=== PATIENT | male | born 1955 | race African-American/Black ===

== ENCOUNTER 2017-05-30 15:01 | Inpatient (IN) | payer SELFPAY ==
[~2017-05-30] VITALS: Ht 175.3 cm; Wt 95.8 kg
[~2017-05-30 15:01] MED LIST: AMLO10TA80 PO; ATOR20TA65 PO; HYDR-4135 PO; LISI40TA4 PO; METO50TA5 PO
[2017-05-30] MEDS ORDERED: VANCOMYCIN 1 G PREMIX 200 ML IV SCH ×3 (15:45→22:15)
[2017-05-30] MEDS ORDERED: PIPERACILLIN SODIUM/TAZOBACTAM 4.5 G in DEXT 5% WATER 100 ML IV SCH (15:45)
[2017-05-30] MEDS ORDERED: SODIUM CHLORIDE 0.9% 1000ML BAG (SEPSIS BOLUS) IV ONE (15:45)
[2017-05-30 16:02] LABS: HEMATOCRIT. 37.5 % (42.0-52.0); HEMOGLOBIN. 12.7 g/dL (14.0-18.0); MEAN CORPUSCULAR HEMOGLOBIN 30.1 pg (28.0-32.0); MEAN CORPUSCULAR VOLUME 89.1 fL (80.0-94.0); MEAN PLATELET VOLUME 9.1 fl (7.4-10.4); PLATELET 205 x1000/uL (130-400); RED BLOOD CELL COUNT 4.21 mill/uL (4.7-6.1); RED CELL DISTRIBUTION WIDTH 15.2 % (11.6-14.6)
[2017-05-30 16:05] LABS: INR 1.2; PROTHROMBIN TIME 12.3 sec (9.4-11.6)
[2017-05-30 16:09] LABS: AMMONIA 55 uMol/L (<32)
[2017-05-30 16:16] LABS: CARBON DIOXIDE 21 mEq/L (21-32); CHLORIDE 103 mEq/L (98-107); TROPONIN I < 0.02 ng/mL (0.00-0.04)
[2017-05-30 16:50] LABS: PLATELET ESTIMATE NORMAL
[2017-05-30] MEDS ORDERED: ACETAMINOPHEN 500MG TABLET ONE (17:57)
[2017-05-30] MEDS ORDERED: LIDOCAINE HCL 2% JELLY 5ML ONE (18:14)
[2017-05-30 20:41] LABS: CLARITY URINE CLEAR (CLEAR); COLOR URINE YELLOW (YELLOW); GLUCOSE URINE TRACE (NEGATIVE); KETONES URINE NEGATIVE (NEGATIVE); LEUKOCYTE ESTERASE URINE TRACE (NEGATIVE); NITRITE URINE POSITIVE (NEGATIVE); OCCULT BLOOD URINE 3+ (NEGATIVE); PH URINE 5.5 (4.5-8.0); PROTEIN URINE TRACE (NEGATIVE); SPECIFIC GRAVITY URINE 1.012 (1.005-1.030); UROBILINOGEN URINE 0.2 E.U./dL (0.2-1.0)
[2017-05-30 21:12] LABS: *AMPHETAMINES SCREEN URINE NEGATIVE (NEGATIVE); *BARBITURATES SCREEN URINE NEGATIVE (NEGATIVE); *BENZODIAZEPINES SCREEN URINE NEGATIVE (NEGATIVE); *COCAINE SCREEN URINE NEGATIVE (NEGATIVE); CANNABINOID URINE SCREEN NEGATIVE (NEGATIVE); METHADONE URINE SCREEN NEGATIVE (NEGATIVE); OPIATES URINE SCREEN NEGATIVE (NEGATIVE); PHENCYCLIDINE URINE SCREEN NEGATIVE (NEGATIVE)
[2017-05-30] MEDS ORDERED: GUAIFENESIN 200MG/10ML SUGAR FREE UDC PO PRN (22:15)
[2017-05-30] MEDS ORDERED: ACETAMINOPHEN 650MG/20.3ML UDC GT PRN (22:15)
[2017-05-30] MEDS ORDERED: IPRATROPIUM/ALBUTEROL 0.5-3(2.5)MG/3ML NEB INH PRN (22:15)
[2017-05-30] MEDS ORDERED: NA PHOS,M-B/NA PHOS,DI-BA ENEMA 118ML PR PRN (22:15)
[2017-05-30] MEDS ORDERED: ACETAMINOPHEN 325MG TABLET PO PRN (22:15)
[2017-05-30] MEDS ORDERED: MAGNESIUM/ALUMINUM HYDROXIDE/SIMETHICONE 30ML UDC PO PRN (22:15)
[2017-05-30] MEDS ORDERED: ACETAMINOPHEN 650MG SUPP PR PRN (22:15)
[2017-05-30] MEDS ORDERED: HYDROCODONE/ACETAMINOPHEN 10/325MG TABLET PO PRN (22:15)
[2017-05-30] MEDS ORDERED: DOCUSATE SODIUM 100MG CAPSULE PO PRN (22:15)
[2017-05-30] MEDS ORDERED: DEXTROSE 50% WATER 50ML SYRINGE IV PRN (22:15)
[2017-05-30] MEDS ORDERED: ONDANSETRON HCL 4MG/2ML VIAL IV PRN (22:15)
[2017-05-31] VITALS (7 sets, daily range): BP systolic 20–170; BP diastolic 77–90
[2017-05-31] MEDS ORDERED: VANCOMYCIN 1500MG in DEXTROSE 5% WATER 250ML IV SCH (04:00)
[2017-05-31] MEDS: PIPERACILLIN/TAZ 3.375G PREMIX 50 ML IV SCH ×3 (04:05→21:46)
[2017-05-31] MEDS: SODIUM CHLORIDE 0.45% 1,000 ML IV SCH ×2 (04:05→11:22)
[2017-05-31] MEDS: BLOOD SUGAR DIAGNOSTIC STRIP TEST SCH ×4 (06:57→21:06)
[2017-05-31 07:11] LABS: HEMATOCRIT. 33.4 % (42.0-52.0); HEMOGLOBIN. 11.2 g/dL (14.0-18.0); MEAN CORPUSCULAR VOLUME 89.2 fL (80.0-94.0); MEAN PLATELET VOLUME 9.8 fl (7.4-10.4); PLATELET 176 x1000/uL (130-400); RED BLOOD CELL COUNT 3.75 mill/uL (4.7-6.1); RED CELL DISTRIBUTION WIDTH 15.5 % (11.6-14.6)
[2017-05-31] MEDS: INSULIN LISPRO 100 UNITS/ML SUBCUT SCH ×4 (08:07→21:27)
[2017-05-31 08:29] LABS: CARBON DIOXIDE 24 mEq/L (21-32); CHLORIDE 106 mEq/L (98-107); HDL CHOLESTEROL 26 mg/dL (40-59); LDL CHOLESTEROL 61 mg/dL (5-100)
[2017-05-31 10:54] LABS: PLATELET ESTIMATE NORMAL
[2017-05-31] MEDS ORDERED: POTASSIUM CHLORIDE 20MEQ TABLET SR PO SCH (12:30)
[2017-05-31] MEDS: CLONIDINE 0.1MG TABLET PO PRN (13:45)
[2017-05-31] MEDS ORDERED: VANCOMYCIN 1 G PREMIX 200 ML IV SCH (16:00)
[2017-05-31] MEDS: VANCOMYCIN 1 G PREMIX 200 ML IV SCH (17:46)
[2017-06-01] VITALS (7 sets, daily range): BP systolic 136–160; BP diastolic 80–101
[2017-06-01] MEDS: SODIUM CHLORIDE 0.45% 1,000 ML IV SCH ×2 (00:42→17:08)
[2017-06-01] MEDS: PIPERACILLIN/TAZ 3.375G PREMIX 50 ML IV SCH ×3 (05:15→21:48)
[2017-06-01] MEDS: VANCOMYCIN 1 G PREMIX 200 ML IV SCH ×3 (05:16→22:55)
[2017-06-01 06:43] LABS: BASOPHILS % 0.8 % (0.0-2.0); EOSINOPHILS % 1.7 % (0.0-5.0); HEMATOCRIT. 33.5 % (42.0-52.0); HEMOGLOBIN. 11.4 g/dL (14.0-18.0); LYMPHOCYTES % 8.2 % (20.0-50.0); MEAN CORPUSCULAR HEMOGLOBIN 30.1 pg (28.0-32.0); MEAN CORPUSCULAR VOLUME 88.6 fL (80.0-94.0); MEAN PLATELET VOLUME 9.8 fl (7.4-10.4); MONOCYTES % 4.5 % (2.0-8.0); NEUTROPHILS % 84.8 % (40.0-76.0); PLATELET 208 x1000/uL (130-400); RED BLOOD CELL COUNT 3.78 mill/uL (4.7-6.1); RED CELL DISTRIBUTION WIDTH 15.5 % (11.6-14.6)
[2017-06-01] MEDS: BLOOD SUGAR DIAGNOSTIC STRIP TEST SCH ×4 (07:27→21:17)
[2017-06-01] MEDS: INSULIN LISPRO 100 UNITS/ML SUBCUT SCH ×4 (07:50→21:47)
[2017-06-01 14:15] LABS: CARBON DIOXIDE 23 mEq/L (21-32); CHLORIDE 106 mEq/L (98-107)
[2017-06-01] MEDS: CLONIDINE 0.1MG TABLET PO PRN (16:59)
[2017-06-01] MEDS ORDERED: AMLODIPINE 10MG TABLET PO ONE (17:45)
[2017-06-01] MEDS: AMLODIPINE 10MG TABLET PO SCH (20:11)
[2017-06-01] MEDS: BENAZEPRIL 5MG TABLET PO SCH (20:12)
[2017-06-01] MEDS ORDERED: ATORVASTATIN CALCIUM 20MG TABLET PO SCH (21:00)
[2017-06-01] MEDS: ASPIRIN 81MG EC TABLET PO SCH (21:46)
[2017-06-01] MEDS ORDERED: ASPI-986 PO (22:55)
[2017-06-01] MEDS ORDERED: POTASSIUM CHLORIDE 20MEQ TABLET SR PO SCH (23:00)
[2017-06-02 05:02] VITALS: BP 151/94
[2017-06-02] MEDS: PIPERACILLIN/TAZ 3.375G PREMIX 50 ML IV SCH ×2 (05:21→13:17)
[2017-06-02] MEDS: VANCOMYCIN 1 G PREMIX 200 ML IV SCH ×2 (05:21→15:43)
[2017-06-02 06:34] LABS: BASOPHILS % 1.2 % (0.0-2.0); EOSINOPHILS % 2.4 % (0.0-5.0); HEMATOCRIT. 35.4 % (42.0-52.0); HEMOGLOBIN. 11.9 g/dL (14.0-18.0); LYMPHOCYTES % 14.6 % (20.0-50.0); MEAN CORPUSCULAR HEMOGLOBIN 30.1 pg (28.0-32.0); MEAN CORPUSCULAR VOLUME 89.5 fL (80.0-94.0); MEAN PLATELET VOLUME 9.3 fl (7.4-10.4); MONOCYTES % 6.5 % (2.0-8.0); NEUTROPHILS % 75.3 % (40.0-76.0); PLATELET 241 x1000/uL (130-400); RED BLOOD CELL COUNT 3.96 mill/uL (4.7-6.1); RED CELL DISTRIBUTION WIDTH 15.5 % (11.6-14.6)
[2017-06-02 06:47] LABS: CARBON DIOXIDE 27 mEq/L (21-32); CHLORIDE 103 mEq/L (98-107)
[2017-06-02 08:00] VITALS: BP 140/91
[2017-06-02] MEDS: INSULIN LISPRO 100 UNITS/ML SUBCUT SCH ×2 (09:21→13:41)
[2017-06-02] MEDS: BLOOD SUGAR DIAGNOSTIC STRIP TEST SCH ×2 (09:22→13:40)
[2017-06-02] MEDS: BENAZEPRIL 5MG TABLET PO SCH (09:23)
[2017-06-02] MEDS: ASPIRIN 81MG EC TABLET PO SCH (09:23)
[2017-06-02] MEDS: AMLODIPINE 10MG TABLET PO SCH (09:23)
[2017-06-02 12:00] VITALS: BP 145/95
[2017-06-02] MEDS ORDERED: AMOX250S70 PO (14:12)
[2017-06-02] MEDS ORDERED: POTASSIUM CHLORIDE 20MEQ TABLET SR PO NR (14:15)
[2017-06-02 16:01] VITALS: BP 131/88
[2017-06-02 17:34] VITALS: BP 131/88
== END 2017-06-02 18:35 | disposition home or self-care (01) | DRG 720 ==
LOC: ER 15:08 → ENRESERV 05-31 00:45 → 6WST 05-31 02:13
PROVIDERS: ADMIT Family Medicine; ATTEND Family Medicine
DX: A41.9 Sepsis, unspecified organism (principal); I63.9 Cerebral infarction, unspecified; I10 Essential (primary) hypertension; R47.01 Aphasia; E66.01 Morbid (severe) obesity due to excess calories; E78.5 Hyperlipidemia, unspecified; I25.10 Atherosclerotic heart disease of native coronary artery without angina pectoris; Z86.73 Personal history of transient ischemic attack (TIA), and cerebral infarction without residual deficits; Z72.0 Tobacco use
CPT/HCPCS: 36415; 70450; 70551; 71010; 80048; 80053; 80061; 80202; 80305; 81001; 82140; 82962; 83605; 83690; 83880; 84484; 85025; 85610; 87040; 87077; 87086; 87186; 93005; 93880; 97162; 97166; C1893; J1815; J2543; J3370; J7030; J7050; J7060

== ENCOUNTER 2019-09-04 21:50 | Inpatient (IN) | payer MEDICAID ==
[~2019-09-04] VITALS: Ht 175.3 cm; Wt 103.9 kg
[~2019-09-04 21:50] MED LIST changes: +AMOX250S70 PO; +ASPI-986 PO; +METO-539 PO; -METO50TA5 PO
[2019-09-04] MEDS ORDERED: SODIUM CHLORIDE 0.9% 500 ML IV ONE (22:35)
[2019-09-04 23:43] LABS: BASOPHILS % 1.5 % (0.0-2.0); EOSINOPHILS % 2.1 % (0.0-5.0); HEMATOCRIT. 36.1 % (42.0-52.0); HEMOGLOBIN. 12.9 g/dL (14.0-18.0); LYMPHOCYTES % 15.7 % (20.0-50.0); MEAN CORPUSCULAR HEMOGLOBIN 31.5 pg (28.0-32.0); MEAN CORPUSCULAR VOLUME 88.2 fL (80.0-94.0); MEAN PLATELET VOLUME 8.5 fl (7.4-10.4); MONOCYTES % 6.7 % (2.0-8.0); PLATELET 292 x1000/uL (130-400); RED BLOOD CELL COUNT 4.09 mill/uL (4.7-6.1); RED CELL DISTRIBUTION WIDTH 14.9 % (11.6-14.6)
[2019-09-05 00:09] LABS: CHLORIDE 99 mEq/L (98-107)
[2019-09-05] MEDS ORDERED: ASPIRIN 325MG EC TABLET PO ONE (00:45)
[2019-09-05] MEDS ORDERED: AMLODIPINE 10MG TABLET PO ONE (00:45)
[2019-09-05] MEDS ORDERED: METOPROLOL TARTRATE 50MG TABLET PO ONE (02:45)
[2019-09-05] MEDS ORDERED: IOHEXOL-350 100 ML BOTTLE ONE (03:52)
[2019-09-05] MEDS ORDERED: TRANEXAMIC ACID 1,000 MG/10 ML IV ONE (05:45)
[2019-09-05] MEDS ORDERED: CLONIDINE 0.1MG TABLET PO PRN (08:30)
[2019-09-05] MEDS ORDERED: DEXTROSE 50% WATER 50ML SYRINGE IV PRN (08:30)
[2019-09-05 09:16] VITALS: BP 187/100
[2019-09-05] MEDS ORDERED: LOSARTAN POTASSIUM 50 MG TABLET PO NR (09:30)
[2019-09-05] MEDS ORDERED: POTASSIUM CHLORIDE 20MEQ TABLET SR PO NR (09:30)
[2019-09-05] MEDS ORDERED: TAMS-11 PO (09:45)
[2019-09-05] MEDS ORDERED: CLOP75TA33 PO (09:45)
[2019-09-05] MEDS ORDERED: GLIP5TAB12 PO (09:45)
[2019-09-05] MEDS: BLOOD SUGAR DIAGNOSTIC STRIP TEST SCH ×4 (09:54→21:00)
[2019-09-05 10:00] VITALS: BP 187/100
[2019-09-05] MEDS: AMLODIPINE 5MG TABLET PO SCH ×2 (10:09→21:01)
[2019-09-05] MEDS: METOPROLOL TARTRATE 50MG TABLET PO SCH ×2 (10:09→21:01)
[2019-09-05 12:00] VITALS: BP 183/96
[2019-09-05 12:50] LABS: LDL CHOLESTEROL 72 mg/dL (5-100)
[2019-09-05 12:53] LABS: HDL CHOLESTEROL 28 mg/dL (40-59)
[2019-09-05] MEDS: INSULIN LISPRO 100 UNITS/ML SUBCUT SCH ×3 (12:58→21:00)
[2019-09-05] MEDS: CLONIDINE 0.2MG TABLET PO SCH ×2 (13:35→21:01)
[2019-09-05 15:27] LABS: CLARITY URINE CLEAR (CLEAR); COLOR URINE YELLOW (YELLOW); KETONES URINE NEGATIVE (NEGATIVE); LEUKOCYTE ESTERASE URINE NEGATIVE (NEGATIVE); NITRITE URINE NEGATIVE (NEGATIVE); OCCULT BLOOD URINE NEGATIVE (NEGATIVE); PROTEIN URINE 1+ (NEGATIVE); SPECIFIC GRAVITY URINE 1.026 (1.005-1.030)
[2019-09-05 16:00] VITALS: BP 185/100
[2019-09-05 17:46] LABS: *AMPHETAMINES SCREEN URINE NEGATIVE (NEGATIVE); *BARBITURATES SCREEN URINE NEGATIVE (NEGATIVE); *BENZODIAZEPINES SCREEN URINE NEGATIVE (NEGATIVE); *COCAINE SCREEN URINE NEGATIVE (NEGATIVE)
[2019-09-05 17:47] LABS: CANNABINOID URINE SCREEN NEGATIVE (NEGATIVE); METHADONE URINE SCREEN NEGATIVE (NEGATIVE); OPIATES URINE SCREEN NEGATIVE (NEGATIVE); PHENCYCLIDINE URINE SCREEN NEGATIVE (NEGATIVE)
[2019-09-05 20:00] VITALS: BP 176/103
[2019-09-06] VITALS: BP 136/82
[2019-09-06 04:00] VITALS: BP 166/88
[2019-09-06] MEDS: CLONIDINE 0.2MG TABLET PO SCH (05:27)
[2019-09-06] MEDS: BLOOD SUGAR DIAGNOSTIC STRIP TEST SCH ×2 (05:41→11:02)
[2019-09-06] MEDS: INSULIN LISPRO 100 UNITS/ML SUBCUT SCH ×2 (05:44→12:05)
[2019-09-06 06:04] LABS: HEMATOCRIT. 28.7 % (42.0-52.0); HEMOGLOBIN. 9.9 g/dL (14.0-18.0); LYMPHOCYTES % 17.8 % (20.0-50.0); MEAN CORPUSCULAR HEMOGLOBIN 30.3 pg (28.0-32.0); MEAN CORPUSCULAR VOLUME 88.4 fL (80.0-94.0); MEAN PLATELET VOLUME 8.8 fl (7.4-10.4); NEUTROPHILS % 72.2 % (40.0-76.0); PLATELET 235 x1000/uL (130-400); RED BLOOD CELL COUNT 3.25 mill/uL (4.7-6.1); RED CELL DISTRIBUTION WIDTH 15.1 % (11.6-14.6)
[2019-09-06 06:18] LABS: CHLORIDE 103 mEq/L (98-107)
[2019-09-06 08:00] VITALS: BP 140/81
[2019-09-06] MEDS ORDERED: POTASSIUM CHLORIDE 20MEQ TABLET SR PO SCH (09:00)
[2019-09-06] MEDS ORDERED: LOSARTAN POTASSIUM 50 MG TABLET PO SCH ×2 (09:00)
[2019-09-06] MEDS: METOPROLOL TARTRATE 50MG TABLET PO SCH (09:57)
[2019-09-06] MEDS: AMLODIPINE 5MG TABLET PO SCH (09:57)
[2019-09-06] MEDS ORDERED: CLONIDINE 0.2MG TABLET PO SCH (12:00)
[2019-09-06 12:07] VITALS: BP 128/83
[2019-09-06] MEDS ORDERED: CLON0.2T MT (15:27)
[2019-09-06] MEDS ORDERED: HYDR-4135 MT (15:27)
[2019-09-06 16:00] VITALS: BP 130/64
[2019-09-06 16:56] VITALS: BP 130/64
[2019-09-06] MEDS ORDERED: HYDRALAZINE HCL 50MG TABLET PO SCH (21:00)
== END 2019-09-06 17:44 | disposition home or self-care (01) | DRG 199 ==
LOC: ER 21:50 → 5WST 09-05 02:17 → EDBEDREQ 09-05 02:19 → EDBEDREQTM 09-05 02:19 → ENRESERV 09-05 07:58 → 5WST 09-05 16:23
PROVIDERS: ADMIT Internal Medicine Nephrology; ATTEND Internal Medicine Nephrology
DX: I16.0 Hypertensive urgency (principal); N17.0 Acute kidney failure with tubular necrosis; E87.1 Hypo-osmolality and hyponatremia; D64.9 Anemia, unspecified; E11.9 Type 2 diabetes mellitus without complications; E66.9 Obesity, unspecified; E78.00 Pure hypercholesterolemia, unspecified; E78.5 Hyperlipidemia, unspecified; E87.6 Hypokalemia; F17.210 Nicotine dependence, cigarettes, uncomplicated; R04.0 Epistaxis; I10 Essential (primary) hypertension; R07.89 Other chest pain; I45.10 Unspecified right bundle-branch block; I69.320 Aphasia following cerebral infarction; Z79.82 Long term (current) use of aspirin; Z79.899 Other long term (current) drug therapy; Z71.6 Tobacco abuse counseling; Z71.3 Dietary counseling and surveillance; Z68.33 Body mass index [BMI] 33.0-33.9, adult
CPT/HCPCS: 36415; 71045; 71275; 80048; 80053; 80061; 80305; 81003; 82962; 83605; 83735; 83880; 84443; 84484; 85025; 93005; 93306; 99285; J1815; J7030; Q9967

== ENCOUNTER 2022-06-21 15:09 | Inpatient (IN) | payer MEDICAID ==
[~2022-06-21] VITALS: Ht 188 cm; Wt 108.1 kg
[~2022-06-21 15:09] MED LIST changes: -AMOX250S70 PO; -ASPI-986 PO; +CLON0.2T MT; +CLOP75TA33 PO; +GLIP5TAB12 PO; +HYDR-4135 MT; -HYDR-4135 PO; +LISI40TA13 PO; -LISI40TA4 PO; +TAMS-11 PO
[2022-06-21 16:18] LABS: BASOPHILS % 1.3 % (0.0-2.0); EOSINOPHILS % 2.6 % (0.0-5.0); HEMATOCRIT. 36.7 % (42.0-52.0); HEMOGLOBIN. 11.6 g/dL (14.0-18.0); LYMPHOCYTES % 21.9 % (20.0-50.0); MEAN CORPUSCULAR HEMOGLOBIN 28.9 pg (28.0-32.0); MEAN CORPUSCULAR VOLUME 91.3 fL (80.0-94.0); MEAN PLATELET VOLUME 8.2 fl (7.4-10.4); MONOCYTES % 8.7 % (2.0-8.0); NEUTROPHILS % 65.5 % (40.0-76.0); PLATELET 293 x1000/uL (130-400); RED BLOOD CELL COUNT 4.02 mill/uL (4.7-6.1)
[2022-06-21 16:27] LABS: CHLORIDE 107 mEq/L (98-107)
[2022-06-21 16:41] LABS: ETHANOL BLOOD < 10 mg/dL
[2022-06-21] MEDS ORDERED: SODIUM CHLORIDE 0.9% 1,000 ML IV ONE (17:15)
[2022-06-21] MEDS ORDERED: IOHEXOL-350 100 ML BOTTLE ONE (19:51)
[2022-06-21] MEDS ORDERED: HYDRALAZINE 20MG/ML VIAL IV ONE (22:30)
[2022-06-22] VITALS (40 sets, daily range): BP systolic 88–189; BP diastolic 65–108
[2022-06-22] MEDS ORDERED: HYDRALAZINE 20MG/ML VIAL IV NR (00:30)
[2022-06-22] MEDS ORDERED: SPIRONOLACTONE 50MG TABLET PO SCH (01:00)
[2022-06-22] MEDS ORDERED: HYDRALAZINE HCL 100MG TABLET PO ONE (01:00)
[2022-06-22] MEDS ORDERED: HYDRALAZINE 20MG/ML VIAL IV ONE (01:30)
[2022-06-22] MEDS ORDERED: NICARDIPINE 40MG/200ML PREMIX 200 ML IV PRN ×2 (03:15→13:00)
[2022-06-22 05:07] LABS: CLARITY URINE CLEAR (CLEAR); COLOR URINE YELLOW (YELLOW); KETONES URINE NEGATIVE (NEGATIVE); LEUKOCYTE ESTERASE URINE 2+ (NEGATIVE); NITRITE URINE NEGATIVE (NEGATIVE); OCCULT BLOOD URINE NEGATIVE (NEGATIVE); PH URINE 6.5 (4.5-8.0); PROTEIN URINE 1+ (NEGATIVE); SPECIFIC GRAVITY URINE 1.028 (1.005-1.030)
[2022-06-22] MEDS ORDERED: ACETAMINOPHEN 325MG TABLET PO PRN (09:30)
[2022-06-22] MEDS ORDERED: IPRATROPIUM/ALBUTEROL 0.5-3(2.5)MG/3ML NEB HHN PRN (09:30)
[2022-06-22] MEDS ORDERED: AMLODIPINE 5MG TABLET PO SCH (09:30)
[2022-06-22] MEDS ORDERED: ONDANSETRON HCL 4MG/2ML INJ IV PRN (09:30)
[2022-06-22] MEDS ORDERED: DIPHENHYDRAMINE 50MG/ML VIAL IV PRN (09:30)
[2022-06-22] MEDS: AMLODIPINE 10MG TABLET PO SCH (11:03)
[2022-06-22] MEDS: CARVEDILOL 6.25 MG TABLET PO SCH ×2 (11:03→21:11)
[2022-06-22 13:04] LABS: BASOPHILS % 0.8 % (0.0-2.0); EOSINOPHILS % 1.6 % (0.0-5.0); HEMATOCRIT. 34.7 % (42.0-52.0); HEMOGLOBIN. 11.4 g/dL (14.0-18.0); MEAN CORPUSCULAR HEMOGLOBIN 29.2 pg (28.0-32.0); MEAN CORPUSCULAR VOLUME 88.8 fL (80.0-94.0); MONOCYTES % 4.6 % (2.0-8.0); PLATELET 295 x1000/uL (130-400); RED BLOOD CELL COUNT 3.91 mill/uL (4.7-6.1); RED CELL DISTRIBUTION WIDTH 16.9 % (11.6-14.6)
[2022-06-22] MEDS: HYDRALAZINE HCL 100MG TABLET PO SCH ×2 (14:34→21:11)
[2022-06-22] MEDS: NICARDIPINE 50 MG in SODIUM CHLORIDE 0.9% 250 ML IV PRN (20:12)
[2022-06-23] VITALS (77 sets, daily range): BP systolic 113–181; BP diastolic 20–142
[2022-06-23] MEDS: NICARDIPINE 50 MG in SODIUM CHLORIDE 0.9% 250 ML IV PRN ×4 (04:56→14:26)
[2022-06-23 05:37] LABS: BASOPHILS % 0.5 % (0.0-2.0); EOSINOPHILS % 2.4 % (0.0-5.0); HEMATOCRIT. 34.8 % (42.0-52.0); HEMOGLOBIN. 11.4 g/dL (14.0-18.0); LYMPHOCYTES % 12.9 % (20.0-50.0); MEAN CORPUSCULAR HEMOGLOBIN 29.3 pg (28.0-32.0); MEAN CORPUSCULAR VOLUME 89.1 fL (80.0-94.0); MEAN PLATELET VOLUME 8.1 fl (7.4-10.4); MONOCYTES % 5.3 % (2.0-8.0); NEUTROPHILS % 78.9 % (40.0-76.0); PLATELET 302 x1000/uL (130-400); RED CELL DISTRIBUTION WIDTH 16.8 % (11.6-14.6)
[2022-06-23] MEDS: HYDRALAZINE HCL 100MG TABLET PO SCH ×3 (05:47→21:18)
[2022-06-23 05:55] LABS: CHLORIDE 107 mEq/L (98-107)
[2022-06-23 06:10] LABS: CREATINE KINASE 289 IU/L (39-308); PHOSPHORUS 2.6 mg/dL (2.5-4.9)
[2022-06-23] MEDS ORDERED: LABETALOL 5MG/ML SYR 20 MG/4 ML SYRINGE IV PRN (09:15)
[2022-06-23] MEDS: AMLODIPINE 10MG TABLET PO SCH (09:21)
[2022-06-23] MEDS: CARVEDILOL 6.25 MG TABLET PO SCH (09:21)
[2022-06-23] MEDS ORDERED: HYDRALAZINE 20MG/ML VIAL IV PRN (10:00)
[2022-06-23] MEDS ORDERED: CARVEDILOL 12.5MG TABLET PO NR (10:15)
[2022-06-23] MEDS ORDERED: POTASSIUM CHLORIDE 20MEQ TABLET SR PO NR (11:30)
[2022-06-23] MEDS: ISOSORBIDE MONONITRATE 30MG TABLET SR 24HR PO SCH (12:47)
[2022-06-23] MEDS: CARVEDILOL 12.5MG TABLET PO SCH (20:07)
[2022-06-24] VITALS (47 sets, daily range): BP systolic 92–185; BP diastolic 74–115
[2022-06-24] MEDS: CLONIDINE 0.1MG TABLET PO PRN ×2 (02:41→17:37)
[2022-06-24 05:55] LABS: BASOPHILS % 0.8 % (0.0-2.0); EOSINOPHILS % 3.3 % (0.0-5.0); HEMATOCRIT. 32.8 % (42.0-52.0); HEMOGLOBIN. 10.8 g/dL (14.0-18.0); LYMPHOCYTES % 15.3 % (20.0-50.0); MEAN CORPUSCULAR HEMOGLOBIN 29.4 pg (28.0-32.0); MONOCYTES % 6.1 % (2.0-8.0); NEUTROPHILS % 74.5 % (40.0-76.0); PLATELET 299 x1000/uL (130-400); RED BLOOD CELL COUNT 3.68 mill/uL (4.7-6.1); RED CELL DISTRIBUTION WIDTH 16.6 % (11.6-14.6)
[2022-06-24] MEDS: HYDRALAZINE HCL 100MG TABLET PO SCH (06:34)
[2022-06-24 06:44] LABS: PHOSPHORUS 3.1 mg/dL (2.5-4.9)
[2022-06-24] MEDS: ISOSORBIDE MONONITRATE 30MG TABLET SR 24HR PO SCH (08:15)
[2022-06-24] MEDS: AMLODIPINE 10MG TABLET PO SCH (08:16)
[2022-06-24] MEDS: CARVEDILOL 12.5MG TABLET PO SCH (08:16)
[2022-06-24] MEDS ORDERED: POTASSIUM CHLORIDE 20MEQ TABLET SR PO SCH (10:00)
[2022-06-24] MEDS ORDERED: ASPIRIN 325MG EC TABLET PO NR (12:15)
[2022-06-24] MEDS ORDERED: CLOPIDOGREL 75MG TABLET PO SCH (12:15)
[2022-06-24 17:07] LABS: FERRITIN 24 ng/mL (22-322)
[2022-06-24 17:34] LABS: VITAMIN B12 SERUM 797 pg/mL (211-911)
[2022-06-24 17:36] LABS: *AMPHETAMINES SCREEN URINE NEGATIVE (NEGATIVE); *BARBITURATES SCREEN URINE NEGATIVE (NEGATIVE); *BENZODIAZEPINES SCREEN URINE NEGATIVE (NEGATIVE); *COCAINE SCREEN URINE NEGATIVE (NEGATIVE); CANNABINOID URINE SCREEN NEGATIVE (NEGATIVE); METHADONE URINE SCREEN NEGATIVE (NEGATIVE); OPIATES URINE SCREEN NEGATIVE (NEGATIVE); PHENCYCLIDINE URINE SCREEN NEGATIVE (NEGATIVE)
[2022-06-24] MEDS ORDERED: CARVEDILOL 6.25 MG TABLET PO SCH (21:00)
[2022-06-25] MEDS ORDERED: ASPIRIN 81MG TABLET PO SCH (09:00)
== END 2022-06-24 21:00 | disposition short-term general hospital (02) | DRG 45 ==
LOC: ER 15:09 → CVICU 06-22 03:31 → ENRESERV 06-22 08:46 → EDBEDREQSVC 06-22 10:07 → ENRESERV 06-22 12:09
PROVIDERS: ADMIT Internal Medicine; ATTEND Internal Medicine
DX: I63.9 Cerebral infarction, unspecified (principal); N17.0 Acute kidney failure with tubular necrosis; I50.30 Unspecified diastolic (congestive) heart failure; I13.0 Hypertensive heart and chronic kidney disease with heart failure and stage 1 through stage 4 chronic kidney disease, or unspecified chronic kidney disease; I67.4 Hypertensive encephalopathy; I69.351 Hemiplegia and hemiparesis following cerebral infarction affecting right dominant side; I16.1 Hypertensive emergency; J44.9 Chronic obstructive pulmonary disease, unspecified; E78.00 Pure hypercholesterolemia, unspecified; N40.0 Benign prostatic hyperplasia without lower urinary tract symptoms; N18.4 Chronic kidney disease, stage 4 (severe); Z20.822 Contact with and (suspected) exposure to COVID-19; E78.5 Hyperlipidemia, unspecified; E87.6 Hypokalemia; N39.0 Urinary tract infection, site not specified; Z79.899 Other long term (current) drug therapy; Z82.49 Family history of ischemic heart disease and other diseases of the circulatory system
CPT/HCPCS: 36415; 70496; 70498; 70551; 71045; 76770; 80048; 80053; 80061; 80305; 80320; 81003; 82270; 82550; 82607; 82728; 82746; 83036; 83540; 83550; 83735; 84100; 84145; 84484; 85025; 87077; 87186; 87426; 92523; 93005; 93306; 93970; 97162; 99285; C9803; J0360; J3490; J7030; J7050; Q9967; A4315; G0480

== ENCOUNTER 2022-07-19 16:24 | Inpatient (IN) | payer MEDICAID ==
[~2022-07-19] VITALS: Ht 177.8 cm; Wt 109.8 kg
[2022-07-19] MEDS ORDERED: LABETALOL 5MG/ML SYR 20 MG/4 ML SYRINGE IV PRN (16:45)
[2022-07-19] MEDS ORDERED: SODIUM CHLORIDE 0.9% 1,000 ML IV ONE (16:45)
[2022-07-19 17:30] LABS: HEMOGLOBIN. 9.4 g/dL (14.0-18.0); MEAN CORPUSCULAR HEMOGLOBIN 29.4 pg (28.0-32.0); MEAN CORPUSCULAR VOLUME 90.5 fL (80.0-94.0); MEAN PLATELET VOLUME 8.1 fl (7.4-10.4); PLATELET 260 x1000/uL (130-400); RED BLOOD CELL COUNT 3.21 mill/uL (4.7-6.1); RED CELL DISTRIBUTION WIDTH 16.9 % (11.6-14.6)
[2022-07-19 17:39] LABS: CHLORIDE 105 mEq/L (98-107)
[2022-07-19 17:42] LABS: INR 1.1; PARTIAL THROMBOPLASTIN TIME 30.1 sec (23.4-31.0); PROTHROMBIN TIME 11.8 sec (9.6-11.0)
[2022-07-19 17:54] LABS: PLATELET ESTIMATE NORMAL
[2022-07-19] MEDS ORDERED: ASPIRIN 325MG EC TABLET PO ONE (18:45)
[2022-07-19] MEDS ORDERED: CLONIDINE 0.2MG TABLET PO ONE (19:15)
[2022-07-19] MEDS ORDERED: IOHEXOL-350 100 ML BOTTLE ONE (21:16)
[2022-07-20 08:40] VITALS: BP 201/110
[2022-07-20 09:00] VITALS: BP 201/110
[2022-07-20] MEDS ORDERED: HYDRALAZINE 20MG/ML VIAL IV PRN (10:00)
[2022-07-20 12:00] VITALS: BP 200/94
[2022-07-20] MEDS ORDERED: HYDR100T31 GT (13:38)
[2022-07-20] MEDS ORDERED: AMLODIPINE 10MG TABLET PO SCH (13:45)
[2022-07-20] MEDS: METOPROLOL TARTRATE 50MG TABLET PO SCH ×2 (13:46→22:24)
[2022-07-20 16:00] VITALS: BP 177/87
[2022-07-20] MEDS ORDERED: ONDANSETRON HCL 4MG/2ML INJ IV PRN (16:45)
[2022-07-20] MEDS ORDERED: DIPHENHYDRAMINE 50MG/ML VIAL IV PRN (16:45)
[2022-07-20] MEDS ORDERED: CLONIDINE 0.1MG TABLET PO PRN (16:45)
[2022-07-20] MEDS ORDERED: ACETAMINOPHEN 325MG TABLET PO PRN ×2 (16:45)
[2022-07-20] MEDS: HYDRALAZINE 20MG/ML VIAL IV PRN (18:26)
[2022-07-20 19:21] LABS: CLARITY URINE CLOUDY (CLEAR); COLOR URINE YELLOW (YELLOW); KETONES URINE NEGATIVE (NEGATIVE); LEUKOCYTE ESTERASE URINE 3+ (NEGATIVE); NITRITE URINE NEGATIVE (NEGATIVE); OCCULT BLOOD URINE 1+ (NEGATIVE); PROTEIN URINE 1+ (NEGATIVE); SPECIFIC GRAVITY URINE 1.016 (1.005-1.030)
[2022-07-20 20:00] VITALS: BP 178/90
[2022-07-20] MEDS ORDERED: TAMSULOSIN HCL 0.4MG SR CAPSULE PO SCH (21:00)
[2022-07-20] MEDS: HYDRALAZINE HCL 50MG TABLET PO SCH (22:23)
[2022-07-20] MEDS: LISINOPRIL 20MG TABLET PO SCH (22:24)
[2022-07-20] MEDS: CLONIDINE 0.2MG TABLET PO SCH (22:24)
[2022-07-20] MEDS: ATORVASTATIN CALCIUM 20MG TABLET PO SCH (22:25)
[2022-07-20] MEDS: SODIUM CHLORIDE 0.9% INJ 3ML FLUSH IVF SCH (22:26)
[2022-07-20] MEDS: CEFTRIAXONE 1,000 MG in DEXTROSE 5% WATER 50 ML IV SCH (22:26)
[2022-07-21] VITALS: BP 107/58
[2022-07-21 04:00] VITALS: BP 171/92
[2022-07-21] MEDS: HYDRALAZINE HCL 50MG TABLET PO SCH ×3 (05:50→21:44)
[2022-07-21] MEDS: SODIUM CHLORIDE 0.9% INJ 3ML FLUSH IVF SCH ×3 (05:50→21:47)
[2022-07-21 07:31] LABS: HEMATOCRIT. 29.9 % (42.0-52.0); HEMOGLOBIN. 9.8 g/dL (14.0-18.0); MEAN CORPUSCULAR HEMOGLOBIN 29.1 pg (28.0-32.0); MEAN CORPUSCULAR VOLUME 89.1 fL (80.0-94.0); MEAN PLATELET VOLUME 8.3 fl (7.4-10.4); PLATELET 247 x1000/uL (130-400); RED BLOOD CELL COUNT 3.36 mill/uL (4.7-6.1); RED CELL DISTRIBUTION WIDTH 16.8 % (11.6-14.6)
[2022-07-21 08:00] VITALS: BP 137/79
[2022-07-21] MEDS ORDERED: AMLODIPINE 10MG TABLET PO SCH (09:00)
[2022-07-21] MEDS ORDERED: CLOPIDOGREL 75MG TABLET PO SCH (09:00)
[2022-07-21] MEDS ORDERED: TAMSULOSIN HCL 0.4MG SR CAPSULE PO SCH (09:00)
[2022-07-21] MEDS: LISINOPRIL 20MG TABLET PO SCH ×2 (09:04→20:09)
[2022-07-21] MEDS: METOPROLOL TARTRATE 50MG TABLET PO SCH ×2 (09:04→20:10)
[2022-07-21] MEDS: CLONIDINE 0.2MG TABLET PO SCH ×2 (09:06→20:10)
[2022-07-21 12:00] VITALS: BP 126/72
[2022-07-21 16:00] VITALS: BP 148/88
[2022-07-21 19:05] LABS: PLATELET ESTIMATE NORMAL
[2022-07-21 20:00] VITALS: BP 119/80
[2022-07-21] MEDS: ATORVASTATIN CALCIUM 20MG TABLET PO SCH (20:09)
[2022-07-21] MEDS: CEFTRIAXONE 1,000 MG in DEXTROSE 5% WATER 50 ML IV SCH (21:27)
[2022-07-22] VITALS: BP 154/85
[2022-07-22 04:00] VITALS: BP 178/97
[2022-07-22] MEDS: HYDRALAZINE 20MG/ML VIAL IV PRN (04:10)
[2022-07-22 06:00] VITALS: BP 205/118
[2022-07-22] MEDS: HYDRALAZINE HCL 50MG TABLET PO SCH (06:03)
[2022-07-22] MEDS: SODIUM CHLORIDE 0.9% INJ 3ML FLUSH IVF SCH (06:11)
[2022-07-22 06:57] VITALS: BP 158/95
[2022-07-22 07:31] VITALS: BP 158/95
== END 2022-07-22 08:55 | disposition short-term general hospital (02) | DRG 720 ==
LOC: ER 16:24 → 8WST 22:49 → EDBEDREQSVC 22:53 → EDBEDREQTM 22:53 → EDBEDREQ 22:53
PROVIDERS: ADMIT Internal Medicine; ATTEND Internal Medicine
DX: A41.9 Sepsis, unspecified organism (principal); G93.41 Metabolic encephalopathy; I69.351 Hemiplegia and hemiparesis following cerebral infarction affecting right dominant side; N39.0 Urinary tract infection, site not specified; E11.9 Type 2 diabetes mellitus without complications; D64.9 Anemia, unspecified; B96.20 Unspecified Escherichia coli [E. coli] as the cause of diseases classified elsewhere; E78.00 Pure hypercholesterolemia, unspecified; Z20.822 Contact with and (suspected) exposure to COVID-19; N40.0 Benign prostatic hyperplasia without lower urinary tract symptoms; I10 Essential (primary) hypertension; Z82.49 Family history of ischemic heart disease and other diseases of the circulatory system; Z87.440 Personal history of urinary (tract) infections
CPT/HCPCS: 36415; 70496; 70498; 71045; 80048; 80053; 81003; 84484; 85025; 86850; 86900; 87077; 87186; 87426; 93005; 97116; 97162; 97166; 97535; 99291; C9803; J0360; J0696; J3490; J7030; J7060; Q9967; A4315

== ENCOUNTER 2022-08-30 11:14 | Emergency (ER) | payer MEDICAID ==
[~2022-08-30] VITALS: Ht 182.9 cm; Wt 115.0 kg
[~2022-08-30 11:14] MED LIST changes: +HYDR100T31 GT
[2022-08-30 11:30] VITALS: BP 175/76
[2022-08-30] MEDS ORDERED: ACETAMINOPHEN 325MG TABLET PO ONE (11:30)
[2022-08-30] MEDS ORDERED: ACET-2708 MT (14:36)
== END 2022-08-30 16:08 | disposition home or self-care (01) ==
LOC: ER 11:30
DX: S63.592A Other specified sprain of left wrist, initial encounter (principal); I69.30 Unspecified sequelae of cerebral infarction; I10 Essential (primary) hypertension; E78.00 Pure hypercholesterolemia, unspecified; W01.0XXA Fall on same level from slipping, tripping and stumbling without subsequent striking against object, initial encounter; Y93.89 Activity, other specified; Y92.9 Unspecified place or not applicable
CPT/HCPCS: 29125; 73110; 99284

== ENCOUNTER 2022-10-04 11:39 | Emergency (ER) | payer MEDICAID ==
[~2022-10-04] VITALS: Ht 182.9 cm; Wt 99.0 kg
[~2022-10-04 11:39] MED LIST changes: +ACET-2708 MT
[2022-10-04 12:56] LABS: CHLORIDE 105 mEq/L (98-107)
[2022-10-04] MEDS ORDERED: POTASSIUM CHLORIDE 20MEQ/PACKET PO SCH (13:00)
[2022-10-04 13:05] LABS: INR 1.2; PROTHROMBIN TIME 12.5 sec (9.6-11.0)
[2022-10-04 13:07] LABS: BASOPHILS % 1.4 % (0.0-2.0); EOSINOPHILS % 8.4 % (0.0-5.0); HEMATOCRIT. 26.7 % (42.0-52.0); HEMOGLOBIN. 8.7 g/dL (14.0-18.0); LYMPHOCYTES % 11.9 % (20.0-50.0); MEAN CORPUSCULAR HEMOGLOBIN 26.8 pg (28.0-32.0); MEAN CORPUSCULAR VOLUME 82.7 fL (80.0-94.0); MEAN PLATELET VOLUME 6.8 fl (7.4-10.4); MONOCYTES % 6.2 % (2.0-8.0); NEUTROPHILS % 72.1 % (40.0-76.0); PLATELET 338 x1000/uL (130-400); RED BLOOD CELL COUNT 3.23 mill/uL (4.7-6.1); RED CELL DISTRIBUTION WIDTH 18.5 % (11.6-14.6)
[2022-10-04] MEDS ORDERED: SODIUM CHLORIDE 0.9% 1,000 ML IV SCH (13:30)
[2022-10-04] MEDS ORDERED: HYDRALAZINE 20MG/ML VIAL IV ONE (17:30)
[2022-10-04 18:00] VITALS: BP 161/92
== END 2022-10-04 18:17 | disposition home or self-care (01) ==
LOC: ER 11:46 → CANBEDREQ 19:56
DX: R31.9 Hematuria, unspecified (principal); E87.6 Hypokalemia; R77.8 Other specified abnormalities of plasma proteins; E78.00 Pure hypercholesterolemia, unspecified; I10 Essential (primary) hypertension; N40.0 Benign prostatic hyperplasia without lower urinary tract symptoms; T83.018A Breakdown (mechanical) of other urinary catheter, initial encounter; Y84.8 Other medical procedures as the cause of abnormal reaction of the patient, or of later complication, without mention of misadventure at the time of the procedure; Y92.9 Unspecified place or not applicable; I69.351 Hemiplegia and hemiparesis following cerebral infarction affecting right dominant side
CPT/HCPCS: 36415; 71045; 80053; 82962; 83605; 83690; 84484; 85025; 85610; 87040; 93005; 96374; 99285; J0360; Z7610

== ENCOUNTER 2022-10-06 21:30 | Inpatient (IN) | payer MEDICAID ==
[~2022-10-06] VITALS: Ht 182.9 cm; Wt 112.5 kg
[2022-10-06] MEDS ORDERED: CEFTRIAXONE 1GM PREMIX 50 ML IV ONE (23:00)
[2022-10-06] MEDS ORDERED: SODIUM CHLORIDE 0.9% 1,000 ML IV ONE (23:00)
[2022-10-06 23:32] LABS: HEMATOCRIT. 25.8 % (42.0-52.0); HEMOGLOBIN. 8.4 g/dL (14.0-18.0); MEAN CORPUSCULAR HEMOGLOBIN 26.4 pg (28.0-32.0); MEAN CORPUSCULAR VOLUME 81.3 fL (80.0-94.0); MEAN PLATELET VOLUME 7.2 fl (7.4-10.4); PLATELET 369 x1000/uL (130-400); RED BLOOD CELL COUNT 3.17 mill/uL (4.7-6.1); RED CELL DISTRIBUTION WIDTH 19.1 % (11.6-14.6)
[2022-10-06 23:33] LABS: INR 1.2
[2022-10-06 23:46] LABS: CHLORIDE 107 mEq/L (98-107)
[2022-10-07 01:01] LABS: PLATELET ESTIMATE NORMAL
[2022-10-07 01:09] LABS: CLARITY URINE CLOUDY (CLEAR); COLOR URINE YELLOW (YELLOW); KETONES URINE NEGATIVE (NEGATIVE); LEUKOCYTE ESTERASE URINE 3+ (NEGATIVE); NITRITE URINE NEGATIVE (NEGATIVE); OCCULT BLOOD URINE NEGATIVE (NEGATIVE); PH URINE 5.5 (4.5-8.0); PROTEIN URINE 1+ (NEGATIVE); SPECIFIC GRAVITY URINE 1.013 (1.005-1.030); UROBILINOGEN URINE 0.2 E.U./dL (0.2-1.0)
[2022-10-07] MEDS ORDERED: SODIUM CHLORIDE 0.9% 1000ML BAG (SEPSIS BOLUS) IV ONE (02:00)
[2022-10-07] MEDS ORDERED: PIPERACILLIN/TAZ 3.375G PREMIX 50 ML IV ONE (04:15)
[2022-10-07] MEDS: SODIUM CHLORIDE 0.9% 1,000 ML IV SCH ×2 (10:04→19:30)
[2022-10-07 10:24] LABS: BG BASE EXCESS -2.3 mmol/L (-2.0-2.0); BG CARBOXYHEMOGLOBIN 0.6 % (0.5-1.5); BG DEOXYHEMOGLOBIN 2.7 % (0.0-5.0); BG HCO3 ACT 20.9 mmol/L (22.0-26.0); BG METHEMOGLOBIN 0.3 % (0.0-1.5); BG OXYGEN SATURATION 97.3 % (92.0-98.5); BG OXYHEMOGLOBIN 96.4 % (94.0-97.0); BG PCO2 30.7 mmHg (35.0-45.0); BG PH 7.451 (7.350-7.450); BG PO2 94.1 mmHg (75.0-100.0); BG SAMPLE SITE RIGHT BRACHIAL; BG TOTAL HEMOGLOBIN 11.3 g/dL (12.0-18.0); BG VENT MODE ROOM AIR
[2022-10-07] MEDS: AMLODIPINE 5MG TABLET PO SCH (11:30)
[2022-10-07] MEDS: METOPROLOL TARTRATE 25MG TABLET PO SCH ×2 (11:30→22:16)
[2022-10-07 12:00] VITALS: BP 189/102
[2022-10-07 14:00] VITALS: BP 162/77
[2022-10-07] MEDS ORDERED: HYDRALAZINE HCL 25MG TABLET PO SCH (14:00)
[2022-10-07] MEDS ORDERED: IPRATROPIUM/ALBUTEROL 0.5-3(2.5)MG/3ML NEB HHN PRN (14:15)
[2022-10-07] MEDS ORDERED: HYDROCODONE/ACETAMINOPHEN 5/325MG TABLET PO PRN (14:15)
[2022-10-07] MEDS ORDERED: DOCUSATE SODIUM 100MG CAPSULE PO PRN (14:15)
[2022-10-07] MEDS ORDERED: ONDANSETRON HCL 4MG/2ML INJ IV PRN (14:15)
[2022-10-07] MEDS ORDERED: ACETAMINOPHEN 325MG TABLET PO PRN ×2 (14:15)
[2022-10-07] MEDS ORDERED: ALBUTEROL (0.083%) 2.5MG/3ML NEB HHN PRN (14:30)
[2022-10-07] MEDS ORDERED: IPRATROPIUM BROMIDE (0.02%) 0.5MG/2.5ML NEB HHN PRN (14:30)
[2022-10-07] MEDS ORDERED: NALOXONE HCL 0.4MG/ML VIAL IV PRN (14:30)
[2022-10-07] MEDS: TAMSULOSIN HCL 0.4MG SR CAPSULE PO SCH (15:32)
[2022-10-07] MEDS: PIPERACILLIN/TAZOBACTAM 3.375 G in DEXTROSE 5% WATER 50 ML IV SCH (15:32)
[2022-10-07] MEDS: CLOPIDOGREL 75MG TABLET PO SCH (15:32)
[2022-10-07 15:56] LABS: TOTAL IRON BINDING CAPACITY 279 ug/dL (250-450)
[2022-10-07 16:00] VITALS: BP 199/93
[2022-10-07 16:08] LABS: FERRITIN 396 ng/mL (22-322)
[2022-10-07 16:19] LABS: HEPATITIS B SURFACE ANTIGEN NEGATIVE
[2022-10-07 16:45] LABS: VITAMIN B12 SERUM 1425 pg/mL (211-911)
[2022-10-07] MEDS: CLONIDINE 0.1MG TABLET PO PRN (16:55)
[2022-10-07 18:00] VITALS: BP 183/100
[2022-10-07 20:00] VITALS: BP 166/85
[2022-10-07 22:00] VITALS: BP 167/94
[2022-10-07] MEDS: HYDRALAZINE HCL 50MG TABLET PO SCH (22:16)
[2022-10-08] VITALS (13 sets, daily range): BP systolic 142–174; BP diastolic 59–107
[2022-10-08] MEDS: SODIUM CHLORIDE 0.9% 1,000 ML IV SCH ×3 (04:59→20:07)
[2022-10-08] MEDS: CLONIDINE 0.1MG TABLET PO PRN ×3 (05:17→20:37)
[2022-10-08] MEDS: HYDRALAZINE HCL 50MG TABLET PO SCH (05:17)
[2022-10-08 06:23] LABS: HEMATOCRIT. 26.1 % (42.0-52.0); HEMOGLOBIN. 8.7 g/dL (14.0-18.0); MEAN CORPUSCULAR HEMOGLOBIN 27.4 pg (28.0-32.0); MEAN CORPUSCULAR VOLUME 81.7 fL (80.0-94.0); MEAN PLATELET VOLUME 8.4 fl (7.4-10.4); PLATELET 344 x1000/uL (130-400); RED BLOOD CELL COUNT 3.19 mill/uL (4.7-6.1); RED CELL DISTRIBUTION WIDTH 19.4 % (11.6-14.6)
[2022-10-08 08:20] LABS: CHLORIDE 107 mEq/L (98-107)
[2022-10-08] MEDS: PIPERACILLIN/TAZOBACTAM 3.375 G in DEXTROSE 5% WATER 50 ML IV SCH (08:49)
[2022-10-08] MEDS: CLOPIDOGREL 75MG TABLET PO SCH (08:50)
[2022-10-08] MEDS: AMLODIPINE 5MG TABLET PO SCH (08:50)
[2022-10-08] MEDS: TAMSULOSIN HCL 0.4MG SR CAPSULE PO SCH (08:55)
[2022-10-08 09:30] LABS: PLATELET ESTIMATE NORMAL
[2022-10-08] MEDS: METOPROLOL TARTRATE 25MG TABLET PO SCH ×2 (10:58→20:19)
[2022-10-08] MEDS: HYDRALAZINE HCL 100MG TABLET PO SCH ×2 (15:01→20:18)
[2022-10-08] MEDS ORDERED: POTASSIUM-SODIUM PHOSPHATE POWDER PACKET PO SCH (18:15)
[2022-10-08] MEDS ORDERED: PIPERACILLIN/TAZOBACTAM 3.375G in DEXT 5% WATER 50ML IV SCH (21:00)
== END 2022-10-08 21:00 | disposition short-term general hospital (02) | DRG 720 ==
LOC: ER 21:30 → 5EST 10-07 04:19 → EDBEDREQTM 10-07 04:27 → EDBEDREQ 10-07 04:27 → EDBEDREQSVC 10-07 05:56 → ENRESERV 10-07 11:51
PROVIDERS: ADMIT Family Medicine Adult Medicine; ATTEND Family Medicine Adult Medicine
DX: A41.50 Gram-negative sepsis, unspecified (principal); E43 Unspecified severe protein-calorie malnutrition; N17.9 Acute kidney failure, unspecified; I27.20 Pulmonary hypertension, unspecified; I69.351 Hemiplegia and hemiparesis following cerebral infarction affecting right dominant side; D63.1 Anemia in chronic kidney disease; N13.6 Pyonephrosis; E78.5 Hyperlipidemia, unspecified; I12.9 Hypertensive chronic kidney disease with stage 1 through stage 4 chronic kidney disease, or unspecified chronic kidney disease; I16.1 Hypertensive emergency; I25.10 Atherosclerotic heart disease of native coronary artery without angina pectoris; R65.20 Severe sepsis without septic shock; Z20.822 Contact with and (suspected) exposure to COVID-19; J44.9 Chronic obstructive pulmonary disease, unspecified; N18.30 Chronic kidney disease, stage 3 unspecified; R31.9 Hematuria, unspecified; N40.0 Benign prostatic hyperplasia without lower urinary tract symptoms; Z68.33 Body mass index [BMI] 33.0-33.9, adult; Z87.891 Personal history of nicotine dependence; Z98.61 Coronary angioplasty status; Z82.49 Family history of ischemic heart disease and other diseases of the circulatory system
CPT/HCPCS: 36415; 36600; 71045; 74176; 80053; 81003; 82375; 82607; 82728; 82746; 82805; 83540; 83550; 83605; 83735; 84100; 84145; 84484; 85025; 86705; 86709; 86803; 87077; 87186; 87340; 87426; 93005; 93306; 99291; C9803; J0696; J2543; J7030; J7060; A4315

== ENCOUNTER 2023-10-26 10:41 | Inpatient (IN) | payer MEDICAID ==
[~2023-10-26] VITALS: Ht 182.9 cm; Wt 112.0 kg
[~2023-10-26 10:41] MED LIST changes: -GLIP5TAB12 PO; +GLIP5TAB22 PO; -HYDR-4135 MT; +HYDR50TA40 MT
[2023-10-26 12:02] LABS: BASOPHILS % 0.9 % (0.0-2.0); HEMATOCRIT. 31.4 % (42.0-52.0); HEMOGLOBIN. 10.2 g/dL (14.0-18.0); LYMPHOCYTES % 11.4 % (20.0-50.0); MEAN CORPUSCULAR HEMOGLOBIN 27.4 pg (28.0-32.0); MEAN CORPUSCULAR HGB CONC 32.4 g/dL (31.0-37.0); MEAN CORPUSCULAR VOLUME 84.6 fL (80.0-94.0); MEAN PLATELET VOLUME 7.5 fl (7.4-10.4); NEUTROPHILS % 72.7 % (40.0-76.0); PLATELET 388 x1000/uL (130-400); RED BLOOD CELL COUNT 3.72 mill/uL (4.7-6.1); WHITE BLOOD COUNT 7.9 x1000/uL (4.5-11.0)
[2023-10-26 12:15] LABS: PROTHROMBIN TIME 11.5 sec (9.6-11.0)
[2023-10-26 12:20] LABS: ALANINE AMINOTRANSFERASE 13 IU/L (10-49); ALBUMIN 4.4 g/dL (3.2-4.8); ASPARTATE AMINOTRANSFERASE 18 IU/L (<34); BILIRUBIN TOTAL 0.4 mg/dL (0.1-1.0); CALCIUM 9.3 mg/dL (8.7-10.4); CARBON DIOXIDE 27 mEq/L (21-32); CHLORIDE 102 mEq/L (98-107); CREATININE 2.1 mg/dL (0.6-1.3); POTASSIUM 3.4 mEq/L (3.5-5.1); SODIUM 136 mEq/L (136-145); UREA NITROGEN BLOOD 21 mg/dL (9-23)
[2023-10-26 12:22] LABS: GLUCOSE 286 mg/dL (70-105)
[2023-10-26 12:23] LABS: TROPONIN I HIGH SENSITIVITY 79 ng/L (3.0-53)
[2023-10-26 12:24] LABS: ETHANOL BLOOD < 10 mg/dL (<10)
[2023-10-26] MEDS: LABETALOL 5MG/ML 4ML INJ IV NR ×2 (12:30→16:28)
[2023-10-26] MEDS ORDERED: LABETALOL 5MG/ML 4ML VIAL IV ONE (12:30)
[2023-10-26] MEDS: HYDRALAZINE HCL 10MG TABLET PO ONE (13:00)
[2023-10-26 13:08] LABS: BETA HYDROXYBUTYRATE 0.1 mMol/L (0.0-0.3)
[2023-10-26] MEDS: ASPIRIN 81MG TABLET PO ONE (14:38)
[2023-10-26] MEDS: SODIUM CHLORIDE 0.9% 500 ML IV ONE (14:38)
[2023-10-26] MEDS: POTASSIUM CHLORIDE 20MEQ TABLET SR PO ONE (15:35)
[2023-10-26] MEDS ORDERED: ONDANSETRON HCL 4MG/2ML INJ IV PRN (15:45)
[2023-10-26] MEDS ORDERED: ACETAMINOPHEN 325MG TABLET PO PRN (15:45)
[2023-10-26] MEDS ORDERED: IPRATROPIUM/ALBUTEROL 0.5-3(2.5)MG/3ML NEB HHN PRN (15:45)
[2023-10-26] MEDS ORDERED: GUAIFENESIN 200MG/10ML SUGAR FREE UDC PO PRN (15:45)
[2023-10-26] MEDS ORDERED: MAGNESIUM/ALUMINUM HYDROXIDE/SIMETHICONE 30ML UDC PO PRN (15:45)
[2023-10-26] MEDS ORDERED: DOCUSATE SODIUM 100MG CAPSULE PO PRN (15:45)
[2023-10-26] MEDS ORDERED: DEXTROSE 50% WATER 50ML SYRINGE IV PRN (16:15)
[2023-10-26 17:51] LABS: PHOSPHORUS 2.3 mg/dL (2.5-4.9)
[2023-10-26] MEDS: BLOOD SUGAR DIAGNOSTIC STRIP TEST SCH (19:24)
[2023-10-26] MEDS: INSULIN LISPRO 100 UNITS/ML SUBCUT SCH (19:28)
[2023-10-26] MEDS: HYDRALAZINE 20MG/ML VIAL IV PRN (20:30)
[2023-10-26] MEDS: CLONIDINE 0.1MG TABLET PO PRN (20:30)
[2023-10-26 20:54] LABS: IRON 46 ug/dL (65-175); TOTAL IRON BINDING CAPACITY 342 ug/dl (250-425)
[2023-10-26 20:58] LABS: FERRITIN 19 ng/mL (22-322); VITAMIN B12 SERUM 406 pg/mL (211-911)
[2023-10-26 22:00] VITALS: BP 165/98; PULSE 80; RESP 19; TEMP 97.5
[2023-10-26 22:17] VITALS: BP 165/98; PULSE 83; RESP 18; TEMP 97.5
[2023-10-27] VITALS (7 sets, daily range): BP systolic 103–188; BP diastolic 61–98; PULSE 84–128; RESP 19–20; TEMP 97.6–99.3; O2SAT 20
[2023-10-27 06:57] LABS: BASOPHILS % 0.9 % (0.0-2.0); EOSINOPHILS % 8.8 % (0.0-5.0); HEMATOCRIT. 32.3 % (42.0-52.0); HEMOGLOBIN. 10.4 g/dL (14.0-18.0); LYMPHOCYTES % 17.8 % (20.0-50.0); MEAN CORPUSCULAR HEMOGLOBIN 26.7 pg (28.0-32.0); MEAN CORPUSCULAR HGB CONC 32.1 g/dL (31.0-37.0); MEAN CORPUSCULAR VOLUME 83.3 fL (80.0-94.0); MEAN PLATELET VOLUME 7.7 fl (7.4-10.4); MONOCYTES % 8.2 % (2.0-8.0); NEUTROPHILS % 64.3 % (40.0-76.0); PLATELET 372 x1000/uL (130-400); RED BLOOD CELL COUNT 3.88 mill/uL (4.7-6.1); RED CELL DISTRIBUTION WIDTH 18.3 % (11.6-14.6); WHITE BLOOD COUNT 6.8 x1000/uL (4.5-11.0)
[2023-10-27 07:02] LABS: CREATINE KINASE 179 IU/L (46-171)
[2023-10-27 07:07] LABS: ALANINE AMINOTRANSFERASE 11 IU/L (10-49); ALBUMIN 3.8 g/dL (3.2-4.8); ASPARTATE AMINOTRANSFERASE 20 IU/L (<34); BILIRUBIN TOTAL 0.8 mg/dL (0.1-1.0); CALCIUM 8.6 mg/dL (8.7-10.4); CARBON DIOXIDE 27 mEq/L (21-32); CHLORIDE 103 mEq/L (98-107); CHOLESTEROL 190 mg/dL (<200); CREATININE 1.6 mg/dL (0.6-1.3); GLUCOSE 172 mg/dL (70-105); HDL CHOLESTEROL 24 mg/dL (>55); LDL CHOLESTEROL 94 mg/dL (5-100); PROTEIN TOTAL 6.8 g/dL (6.0-8.3); SODIUM 138 mEq/L (136-145); T4 FREE 1.25 ng/dL (0.89-1.76); TRIGLYCERIDE 329 mg/dL (0-150); UREA NITROGEN BLOOD 18 mg/dL (9-23)
[2023-10-27 08:36] LABS: TROPONIN I HIGH SENSITIVITY 95 ng/L (3.0-53)
[2023-10-27] MEDS: AMLODIPINE 10MG TABLET PO SCH (09:23)
[2023-10-27] MEDS: POTASSIUM CHLORIDE 20MEQ TABLET SR PO SCH (09:23)
[2023-10-27] MEDS: PANTOPRAZOLE SODIUM 40 MG/VIAL IV SCH (09:23)
[2023-10-27] MEDS: CLOPIDOGREL 75MG TABLET PO SCH (09:24)
[2023-10-27] MEDS: ASPIRIN 81MG TABLET PO SCH (09:27)
[2023-10-27] MEDS: LISINOPRIL 40MG TABLET PO SCH (09:28)
[2023-10-27] MEDS: POTASSIUM PHOSPHATE 15 MMOL in DEXT 5% WATER 245 ML IV NR (17:38)
[2023-10-27] MEDS: INSULIN LISPRO 100 UNITS/ML SUBCUT SCH (17:52)
[2023-10-27] MEDS: ATORVASTATIN CALCIUM 40MG TABLET PO SCH (21:00)
[2023-10-27] MEDS ORDERED: INSULIN GLARGINE 100 UNITS/ML SUBCUT SCH (22:00)
== END 2023-10-27 22:05 | disposition short-term general hospital (02) | DRG 199 ==
LOC: ER 10:41 → EDBEDREQ 11:51 → EDBEDREQSVC 12:43 → EDBEDREQ 12:43 → EDBEDREQTM 15:15 → EDBEDREQ 15:15 → 7WST 22:28
PROVIDERS: ADMIT Internal Medicine; ATTEND Internal Medicine
DX: I16.1 Hypertensive emergency (principal); I21.A1 Myocardial infarction type 2; N17.9 Acute kidney failure, unspecified; G90.8 Other disorders of autonomic nervous system; E83.39 Other disorders of phosphorus metabolism; E11.22 Type 2 diabetes mellitus with diabetic chronic kidney disease; D64.9 Anemia, unspecified; I69.351 Hemiplegia and hemiparesis following cerebral infarction affecting right dominant side; E11.65 Type 2 diabetes mellitus with hyperglycemia; F03.90 Unspecified dementia, unspecified severity, without behavioral disturbance, psychotic disturbance, mood disturbance, and anxiety; I12.9 Hypertensive chronic kidney disease with stage 1 through stage 4 chronic kidney disease, or unspecified chronic kidney disease; N18.30 Chronic kidney disease, stage 3 unspecified; E78.00 Pure hypercholesterolemia, unspecified; E87.6 Hypokalemia; N40.0 Benign prostatic hyperplasia without lower urinary tract symptoms; R32 Unspecified urinary incontinence; Z90.79 Acquired absence of other genital organ(s)
CPT/HCPCS: 36415; 71045; 80053; 80061; 80320; 82010; 82550; 82607; 82728; 82746; 82962; 83036; 83540; 83550; 83735; 84100; 84439; 84443; 84484; 85025; 93005; 93306; 93970; 99285; C9113; J0360; J1815; J3490; J7040; J7060; G0480

== ENCOUNTER 2024-07-14 17:20 | Emergency (ER) | payer MEDICAID ==
[~2024-07-14] VITALS: Ht 176.5 cm; Wt 100.0 kg
[2024-07-14 17:22] VITALS: TEMP 98.7; O2SAT 100
[2024-07-14] MEDS ORDERED: PANTOPRAZOLE SODIUM 40 MG/VIAL IV ONE (17:30)
[2024-07-14 18:25] LABS: CHLORIDE 104 mEq/L (98-107); POTASSIUM 3.3 mEq/L (3.5-5.1); SODIUM 140 mEq/L (136-145)
[2024-07-14 18:26] LABS: CALCIUM 9.2 mg/dL (8.7-10.4); CARBON DIOXIDE 27 mEq/L (21-32)
[2024-07-14 18:27] LABS: BASOPHILS % 1.2 % (0.0-2.0); EOSINOPHILS % 4.7 % (0.0-5.0); HEMATOCRIT. 30.9 % (42.0-52.0); LYMPHOCYTES % 19.6 % (20.0-50.0); MEAN CORPUSCULAR HEMOGLOBIN 28.3 pg (28.0-32.0); MEAN CORPUSCULAR HGB CONC 32.4 g/dL (31.0-37.0); MEAN CORPUSCULAR VOLUME 87.4 fL (80.0-94.0); MEAN PLATELET VOLUME 6.7 fl (7.4-10.4); MONOCYTES % 9.6 % (2.0-8.0); NEUTROPHILS % 64.9 % (40.0-76.0); PLATELET 364 x1000/uL (130-400); RED BLOOD CELL COUNT 3.53 mill/uL (4.7-6.1); RED CELL DISTRIBUTION WIDTH 19.7 % (11.6-14.6); WHITE BLOOD COUNT 5.3 x1000/uL (4.5-11.0)
[2024-07-14 18:29] LABS: INR 1.1; PARTIAL THROMBOPLASTIN TIME 29.2 sec (23.4-31.0); PROTHROMBIN TIME 12.4 sec (9.6-11.0)
[2024-07-14 18:31] LABS: CREATININE 1.7 mg/dL (0.6-1.3); GLUCOSE 109 mg/dL (70-105); UREA NITROGEN BLOOD 23 mg/dL (9-23)
[2024-07-14 18:32] LABS: TROPONIN I HIGH SENSITIVITY 32 ng/L (3.0-53)
[2024-07-14 18:33] LABS: ALANINE AMINOTRANSFERASE 15 IU/L (10-49); ASPARTATE AMINOTRANSFERASE 20 IU/L (<34)
[2024-07-14 18:34] LABS: BILIRUBIN DIRECT 0.2 mg/dL (<=3.0); BILIRUBIN TOTAL 0.6 mg/dL (0.1-1.0); PROTEIN TOTAL 7.4 g/dL (6.0-8.3)
[2024-07-14] MEDS: HYDRALAZINE 20MG/ML VIAL IV ONE (19:19)
[2024-07-14] MEDS: SODIUM CHLORIDE 0.9% 1,000 ML IV ONE (19:20)
[2024-07-14] MEDS: PANTOPRAZOLE SODIUM 40 MG/VIAL IV NR (20:10)
[2024-07-14] MEDS: LABETALOL 5MG/ML 4ML INJ IV ONE (21:22)
[2024-07-15] MEDS ORDERED: IOHEXOL-350 100 ML BOTTLE ONE (00:56)
[2024-07-15 01:48] VITALS: PULSE 136
[2024-07-15] MEDS: MORPHINE SULFATE 2 MG/ML INJ (NOT FOR IM USE) IV NR (01:48)
[2024-07-15] MEDS ORDERED: ENOXAPARIN 40MG/0.4ML SYR SUBCUT SCH (02:00)
[2024-07-15] MEDS ORDERED: SODIUM CHLORIDE 0.9% 1,000 ML IV SCH (02:00)
[2024-07-15] MEDS ORDERED: DOCUSATE SODIUM 100MG CAPSULE PO PRN (02:00)
[2024-07-15] MEDS ORDERED: IPRATROPIUM/ALBUTEROL 0.5-3(2.5)MG/3ML NEB HHN PRN (02:00)
[2024-07-15] MEDS ORDERED: CLONIDINE 0.1MG TABLET PO PRN (02:00)
[2024-07-15] MEDS ORDERED: ACETAMINOPHEN 325MG TABLET PO PRN ×2 (02:00)
[2024-07-15] MEDS ORDERED: ONDANSETRON HCL 4MG/2ML INJ IV PRN (02:00)
[2024-07-15] MEDS ORDERED: GUAIFENESIN 200MG/10ML SUGAR FREE UDC PO PRN (02:00)
[2024-07-15 02:02] VITALS: BP 139/98; RESP 19; O2SAT 98
[2024-07-15] MEDS ORDERED: PIPERACILLIN/TAZO 3.375G/50ML 50 ML IV SCH (06:00)
[2024-07-15] MEDS ORDERED: PANTOPRAZOLE 40MG DR TABLET PO SCH (07:50)
[2024-07-15] MEDS ORDERED: AMLODIPINE 10MG TABLET PO SCH (09:00)
[2024-07-15] MEDS ORDERED: LISINOPRIL 40MG TABLET PO SCH (09:00)
[2024-07-15] MEDS ORDERED: ATORVASTATIN CALCIUM 20MG TABLET PO SCH (09:00)
[2024-07-15] MEDS ORDERED: CLONIDINE 0.2MG TABLET PO SCH (09:00)
[2024-07-15] MEDS ORDERED: TAMSULOSIN HCL 0.4MG SR CAPSULE PO SCH (09:00)
[2024-07-15] MEDS ORDERED: HYDRALAZINE HCL 50MG TABLET PO SCH (09:00)
[2024-07-15] MEDS ORDERED: METOPROLOL TARTRATE 50MG TABLET PO SCH (09:00)
[2024-07-16] MEDS ORDERED: CLOPIDOGREL 75MG TABLET PO SCH (01:00)
== END 2024-07-15 02:22 | disposition short-term general hospital (02) ==
LOC: ER 17:20
DX: A01.4 Paratyphoid fever, unspecified (principal); K92.2 Gastrointestinal hemorrhage, unspecified; E11.9 Type 2 diabetes mellitus without complications; E78.5 Hyperlipidemia, unspecified; E86.0 Dehydration; E87.6 Hypokalemia; F03.90 Unspecified dementia, unspecified severity, without behavioral disturbance, psychotic disturbance, mood disturbance, and anxiety; I10 Essential (primary) hypertension; N40.0 Benign prostatic hyperplasia without lower urinary tract symptoms; Z55.6 Problems related to health literacy; Z79.02 Long term (current) use of antithrombotics/antiplatelets; Z79.82 Long term (current) use of aspirin; Z79.84 Long term (current) use of oral hypoglycemic drugs; Z79.899 Other long term (current) drug therapy; Z86.73 Personal history of transient ischemic attack (TIA), and cerebral infarction without residual deficits
CPT/HCPCS: 80076; 80048; 83605; 83690; 85018; 85025; 85610; 85730; 86850; 86900; 86901; 87040; 84484; 36415; 74174; 96361; 96365; 96375 ×2; 99291; J0360; J3490; J2470; J7030; Z7610; Q9967; J2270